=== PATIENT | female | born 1940 | race Two or more races ===

== ENCOUNTER 2018-01-07 19:33 | Inpatient (IN) | payer MEDICAID ==
[~2018-01-07] VITALS: Ht 160 cm; Wt 105.2 kg
[~2018-01-07 19:33] MED LIST: ALEN70TA45 PO; DEXL60CA3 PO; DOCU100C36 PO; FURO20TA4 PO; GABA-534 PO; GLYB5TAB7 PO; INSU3INS6 SQ; LOSA100T15 PO; METO50TA16 PO; POTA10TA10 PO; SIMV10TA6 PO; SITA100T PO
[2018-01-07] MEDS ORDERED: SIMV10TA6 PO (20:25)
[2018-01-07] MEDS ORDERED: INSU100V7 SQ (20:25)
[2018-01-07] MEDS ORDERED: SIME125C81 PO (20:25)
[2018-01-07] MEDS ORDERED: ENALAPRILAT DIHYDRATE 1.25 MG/1 ML VIAL IV ONE ×2 (20:30→20:50)
[2018-01-07] MEDS ORDERED: NITROGLYCERIN OINT 1 GM PACKET TP ONE ×2 (20:30→20:50)
[2018-01-07 21:03] LABS: BASOPHILS % (AUTO) 0.4 % (0.0-2.0); EOSINOPHILS # (AUTO) 0.1 K/uL (0.0-0.7); HEMOGLOBIN 11.9 g/dL (10.9-14.3); LYMPHOCYTES # (AUTO) 1.9 K/uL (20.0-40.0); MEAN CORPUSCULAR HEMOGLOBIN 28.3 uug (24.7-32.8); MEAN CORPUSCULAR HGB CONC 33 g/dL (32.3-35.6); MEAN CORPUSCULAR VOLUME 86.2 fL (75.5-95.3); MONOCYTES # (AUTO) 0.5 K/uL (2.0-10.0); MONOCYTES % (AUTO) 5.3 % (0.0-11.0); NEUTROPHILS # (AUTO) 7.5 K/uL (1.8-8.9); NEUTROPHILS % (AUTO) 74.3 % (38.5-71.5); PLATELET COUNT (AUTO) 272 K/uL (179-408); RED BLOOD CELL COUNT(AUTO) 4.18 MIL/uL (3.63-4.92)
[2018-01-07 21:10] LABS: CARBON DIOXIDE 21 mmol/L (21-32); CHLORIDE 107 mmol/L (98-107); CREATININE 1.3 mg/dL (0.6-1.3); GLUCOSE 244 mg/dL (74-106); POTASSIUM 3.8 mmol/L (3.5-5.1); UREA NITROGEN, BLOOD 30 mg/dL (7-18)
[2018-01-07 21:22] LABS: ALANINE AMINOTRANSFERASE 23 U/L (14-59); ALKALINE PHOSPHATASE 67 U/L (50-136); ASPARTATE AMINOTRANSFERASE 16 U/L (15-37); BILIRUBIN,DIRECT 0.1 mg/dL (0.0-0.2); BILIRUBIN,TOTAL 0.2 mg/dL (0.2-1.0); TOTAL PROTEIN, SERUM 6.9 g/dL (6.4-8.2)
--- NOTE | 2018-01-07 22:32 | NUR ---
MD MADRID AT BEDSIDE DISCUSSING TX OPTIONS WITH PT AND PT'S FAMILY.
[2018-01-08] MEDS ORDERED: MORPHINE SULFATE 4 MG/1 ML DISP.SYRIN IV PRN
[2018-01-08] MEDS ORDERED: ACETAMINOPHEN 325 MG TABLET PO PRN
[2018-01-08] MEDS ORDERED: DEXTROSE 50% 50 ML DISP.SYRIN IV PRN
[2018-01-08] MEDS ORDERED: TEMAZEPAM 15 MG CAPSULE PO PRN
[2018-01-08] MEDS ORDERED: ALBUTEROL SULFATE 2.5 MG/3 ML NEBU NEB PRN
[2018-01-08] MEDS ORDERED: ONDANSETRON 4 MG/2 ML VIAL IV PRN
--- NOTE | 2018-01-08 00:19 | NUR ---
GAVE REPORT TO VARINDER WASHINGTON IN 2ND FLOOR TELEMETRY
--- NOTE | 2018-01-08 00:50 | NUR ---
Admitted a 67 years old female with diagnosis of CHF. Pt AAOX4. Denies any pain. C/O of SOB with exertion. Place on O2 at 4LPM via NC and effective. O2 sat at 96%. IV site on right hand intact and patent. Routine admission care done. Plan of care and safety initiated. Call gaviria within reach.
--- NOTE | 2018-01-08 05:56 | NUR ---
AOx4. Denies any pain or further SOB. Not in acute distress. O2 at 4LPM via nc in place. O2 sat at 96%. Elevated both LE with pillows. IV site on right hand intact and patent. SR on tele at 73/min. Assisted to bathroom as needed. Safety measure maintained and call gaviria within reach.
[2018-01-08 06:41] VITALS: BP 134/76
[2018-01-08] MEDS: PANTOPRAZOLE SODIUM 40 MG TABLET.DR PO SCH (06:41)
[2018-01-08] MEDS: BLOOD SUGAR DIAGNOSTIC 1 EACH STRIP VI SCH ×4 (06:41→20:43)
[2018-01-08 07:05] LABS: BASOPHILS % (AUTO) 0.4 % (0.0-2.0); EOSINOPHILS # (AUTO) 0.1 K/uL (0.0-0.7); EOSINOPHILS % (AUTO) 1.5 % (0.0-7.0); HEMATOCRIT 33.5 % (31.2-41.9); LYMPHOCYTES # (AUTO) 2.3 K/uL (20.0-40.0); LYMPHOCYTES % (AUTO) 23.5 % (20.5-51.5); MEAN CORPUSCULAR HEMOGLOBIN 28.4 uug (24.7-32.8); MEAN CORPUSCULAR HGB CONC 33 g/dL (32.3-35.6); MEAN CORPUSCULAR VOLUME 86.5 fL (75.5-95.3); MONOCYTES # (AUTO) 0.5 K/uL (2.0-10.0); MONOCYTES % (AUTO) 5.3 % (0.0-11.0); NEUTROPHILS # (AUTO) 6.8 K/uL (1.8-8.9); NEUTROPHILS % (AUTO) 69.3 % (38.5-71.5); PLATELET COUNT (AUTO) 279 K/uL (179-408); RED BLOOD CELL COUNT(AUTO) 3.87 MIL/uL (3.63-4.92); WHITE BLOOD COUNT (AUTO) 9.8 K/uL (3.8-11.8)
--- NOTE | 2018-01-08 07:10 | NUR ---
RECEIVED REPORT FROM HEAD BATCHER NURSE, PATIENT IN BED AWAKE, PATIENT REPORTS MILD SHORTNESS OF BREATH ON 4 LITERS O2, BED IN LOW POSITION, SIDE RAILS UP X2, BED ALARM ON.
[2018-01-08] MEDS ORDERED: TEMAZEPAM 7.5 MG CAPSULE PO PRN (07:15)
[2018-01-08 07:25] LABS: ALANINE AMINOTRANSFERASE 20 U/L (14-59); ALKALINE PHOSPHATASE 61 U/L (50-136); ASPARTATE AMINOTRANSFERASE 18 U/L (15-37); BILIRUBIN,TOTAL 0.2 mg/dL (0.2-1.0); CARBON DIOXIDE 23 mmol/L (21-32); CHLORIDE 109 mmol/L (98-107); CHOLESTEROL 144 mg/dL (<200); CREATININE 1.3 mg/dL (0.6-1.3); GLUCOSE 212 mg/dL (74-106); HDL CHOLESTEROL 29 mg/dL (40-60); MAGNESIUM 1.9 mg/dL (1.8-2.4); PHOSPHOROUS 3.4 mg/dL (2.5-4.9); POTASSIUM 4.2 mmol/L (3.5-5.1); TOTAL PROTEIN, SERUM 6.4 g/dL (6.4-8.2); TRIGLYCERIDES 174 MG/DL (30-150); UREA NITROGEN, BLOOD 32 mg/dL (7-18)
[2018-01-08] MEDS: glyBURIDE 5 MG TABLET PO SCH ×2 (08:39→18:38)
[2018-01-08] MEDS: LOSARTAN POTASSIUM 50 MG TABLET PO SCH (08:40)
[2018-01-08] MEDS: FUROSEMIDE 40 MG/4 ML VIAL IV SCH ×2 (08:40→20:38)
[2018-01-08] MEDS: METOPROLOL TARTRATE 50 MG TABLET PO SCH ×2 (08:41→16:59)
[2018-01-08] MEDS: INSULIN REGULAR, HUMAN 300 UNIT/3 ML VIAL SQ PRN ×4 (08:43→20:45)
[2018-01-08] MEDS ORDERED: Medication Not On Formulary EA (Losartan Potassium 100 MG) PO SCH (09:00)
[2018-01-08 11:40] VITALS: BP 119/53
[2018-01-08] MEDS ORDERED: Medication Not On Formulary EA (Sitagliptin Phosphate (Januvia) 100 MG) PO SCH (12:00)
[2018-01-08] MEDS: LINAGLIPTIN 5 MG TABLET PO SCH (12:44)
[2018-01-08 15:42] VITALS: BP 151/65
--- NOTE | 2018-01-08 19:35 | NUR ---
PT RECEIVED IN BED, AWAKE. DAUGHTER AT BEDSIDE. A/OX3. ABLE TO MAKE NEEDS KNOWN. V/S STABLE. IN NO ACUTE DISTRESS. NO C/O PAIN AT THIS TIME. 68 SINUS ON THE TELE MONITOR. IV INTACT AND PATENT, SALINE FLUSHED. ON 2LNC, TOLERATING WELL. AFEBRILE. SAFETY MEASURES IMPLEMENTED. CALL LIGHT WITHIN REACH.
--- NOTE | 2018-01-08 19:36 | NUR ---
PATIENT HAS BEEN COOPERATIVE WITH CARE, BUT HAS A HIGH LEVEL OF ANXIETY AND KEEPS WALKING AROUND THE ROOM. NO PAIN REPORTED, BUT SWELLING IN LOWER EXTREMITIES EVIDENT. PATIENT CURRENTLY IN BED, NO DISTRESS NOTED, BED IN LOW POSITION, SIDE RAILS UP X2.
[2018-01-08 20:00] VITALS: BP 141/59
--- NOTE | 2018-01-08 20:50 | NUR ---
PT C/O LOWER EXTREMITY ACHING AT 3/10. TYLENOL ADMINISTERED ORDERED. IN STABLE CONDITION. WILL CONT TO MONITOR.
[2018-01-08] MEDS ORDERED: DOCUSATE SODIUM 250 MG CAPSULE PO SCH (21:00)
[2018-01-08] MEDS ORDERED: DOCUSATE SODIUM 100 MG CAPSULE PO SCH (21:00)
[2018-01-08] MEDS ORDERED: SIMVASTATIN 10 MG TABLET PO SCH (21:00)
[2018-01-08] MEDS ORDERED: hydrALAZINE HCL 25 MG TABLET PO PRN (21:15)
[2018-01-09 00:38] VITALS: BP 158/74
[2018-01-09 04:46] VITALS: BP 160/76
[2018-01-09] MEDS: PANTOPRAZOLE SODIUM 40 MG TABLET.DR PO SCH (06:00)
[2018-01-09] MEDS: BLOOD SUGAR DIAGNOSTIC 1 EACH STRIP VI SCH ×3 (06:00→16:30)
--- NOTE | 2018-01-09 06:05 | NUR ---
END OF SHIFT NOTES. PT SLEPT WELL THROUGHOUT SHIFT. INSOMNIA CEASED. IN STABLE CONDITION. TOLERATED RA WELL. IV REMAINS INTACT AND PATENT. AFEBRILE. ALL NEEDS ATTENDED. SAFETY MAINTAINED. CALL LIGHT WITHIN REACH.
[2018-01-09 06:27] LABS: BASOPHILS % (AUTO) 0.3 % (0.0-2.0); EOSINOPHILS # (AUTO) 0.2 K/uL (0.0-0.7); EOSINOPHILS % (AUTO) 2.2 % (0.0-7.0); HEMATOCRIT 35.8 % (31.2-41.9); HEMOGLOBIN 11.7 g/dL (10.9-14.3); LYMPHOCYTES # (AUTO) 2.2 K/uL (20.0-40.0); LYMPHOCYTES % (AUTO) 22.3 % (20.5-51.5); MEAN CORPUSCULAR HEMOGLOBIN 28.4 uug (24.7-32.8); MEAN CORPUSCULAR HGB CONC 33 g/dL (32.3-35.6); MEAN CORPUSCULAR VOLUME 86.9 fL (75.5-95.3); MONOCYTES # (AUTO) 0.6 K/uL (2.0-10.0); MONOCYTES % (AUTO) 6.4 % (0.0-11.0); NEUTROPHILS # (AUTO) 6.7 K/uL (1.8-8.9); NEUTROPHILS % (AUTO) 68.8 % (38.5-71.5); PLATELET COUNT (AUTO) 260 K/uL (179-408); RED BLOOD CELL COUNT(AUTO) 4.12 MIL/uL (3.63-4.92); WHITE BLOOD COUNT (AUTO) 9.7 K/uL (3.8-11.8)
[2018-01-09 06:32] LABS: CARBON DIOXIDE 24 mmol/L (21-32); CHLORIDE 108 mmol/L (98-107); CREATININE 1.5 mg/dL (0.6-1.3); GLUCOSE 189 mg/dL (74-106); MAGNESIUM 1.8 mg/dL (1.8-2.4); PHOSPHOROUS 3.7 mg/dL (2.5-4.9); POTASSIUM 3.8 mmol/L (3.5-5.1); UREA NITROGEN, BLOOD 33 mg/dL (7-18)
--- NOTE | 2018-01-09 07:20 | NUR ---
received report from commodities requirements analyst nurse, patient in bed awake, patient reports feeling a great deal of anxiety and wants to be discharged home, bed in low position, side rails up x2.
[2018-01-09] MEDS: glyBURIDE 5 MG TABLET PO SCH ×2 (08:28→17:47)
[2018-01-09] MEDS: FUROSEMIDE 40 MG/4 ML VIAL IV SCH (08:29)
[2018-01-09] MEDS: METOPROLOL TARTRATE 50 MG TABLET PO SCH ×2 (08:34→17:47)
[2018-01-09] MEDS: LOSARTAN POTASSIUM 50 MG TABLET PO SCH (08:35)
[2018-01-09] MEDS: INSULIN REGULAR, HUMAN 300 UNIT/3 ML VIAL SQ PRN ×3 (08:37→17:55)
[2018-01-09 11:46] VITALS: BP 114/53
[2018-01-09] MEDS: LINAGLIPTIN 5 MG TABLET PO SCH (12:04)
[2018-01-09 15:50] VITALS: BP 135/59
[2018-01-09] MEDS ORDERED: GLYB5TAB7 PO (17:28)
[2018-01-09] MEDS ORDERED: FURO20TA4 PO (17:28)
[2018-01-09 17:47] VITALS: BP 135/59
--- NOTE | 2018-01-09 18:40 | NUR ---
Patient was given education on diabetes care, diet and exercise management. IV removed, and prescriptions given. Patient has no Shortness of breath, pain or lower extremity swelling. Patient declined to take photographs.
[2018-01-10] MEDS ORDERED: FUROSEMIDE 20 MG TABLET PO SCH (09:00)
== END 2018-01-09 18:45 | disposition home or self-care (01) | DRG 194 ==
LOC: ER 19:35 → TELE 01-08 00:05 → MED 01-09 00:35
PROVIDERS: ADMIT Internal Medicine; ATTEND Internal Medicine
DX: I13.0 Hypertensive heart and chronic kidney disease with heart failure and stage 1 through stage 4 chronic kidney disease, or unspecified chronic kidney disease (principal); N17.0 Acute kidney failure with tubular necrosis; E11.22 Type 2 diabetes mellitus with diabetic chronic kidney disease; I45.10 Unspecified right bundle-branch block; I50.33 Acute on chronic diastolic (congestive) heart failure; N18.9 Chronic kidney disease, unspecified; E11.42 Type 2 diabetes mellitus with diabetic polyneuropathy; Z79.4 Long term (current) use of insulin; Z79.899 Other long term (current) drug therapy; E78.5 Hyperlipidemia, unspecified; E11.65 Type 2 diabetes mellitus with hyperglycemia; E66.01 Morbid (severe) obesity due to excess calories; Z68.41 Body mass index [BMI] 40.0-44.9, adult; I34.0 Nonrheumatic mitral (valve) insufficiency; I25.10 Atherosclerotic heart disease of native coronary artery without angina pectoris
CPT/HCPCS: 36415; 70030-TC; 71045; 83605; 83735; 84100; 84443; 85025; 85730; 87040; 93005; 93307; A4663; J1815; J1940; J3490; J7030

== ENCOUNTER 2018-08-24 16:57 | Emergency (ER) | payer MEDICAID ==
[~2018-08-24] VITALS: Ht 165.1 cm; Wt 105.7 kg
[~2018-08-24 16:57] MED LIST changes: -GABA-534 PO; +INSU100V7 SQ; -INSU3INS6 SQ; +SIME125C81 PO
[2018-08-24] MEDS ORDERED: methylPREDNISolone ACETATE 40 MG VIAL IM ONE (17:15)
--- NOTE | 2018-08-24 17:15 | NUR ---
PATIENT WAS MSE BY DR STRICKLAND IN ROOM 01B.
[2018-08-24] MEDS ORDERED: methylPREDNISolone ACETATE 40 MG VIAL ONE (17:23)
--- NOTE | 2018-08-24 17:42 | NUR ---
Patient discharged to home in stable conditon. Written and verbal after care instructions given. Patient verbalizes understanding of instructions.
[2018-08-24 17:44] VITALS: BP 127/69
[2018-08-24] MEDS ORDERED: methylPREDNISolone ACETATE 80 MG VIAL IM ONE (18:15)
== END 2018-08-24 17:45 | disposition home or self-care (01) ==
LOC: ER 16:59
DX: S80.869A Insect bite (nonvenomous), unspecified lower leg, initial encounter (principal); L08.9 Local infection of the skin and subcutaneous tissue, unspecified; E11.9 Type 2 diabetes mellitus without complications; I10 Essential (primary) hypertension; E78.00 Pure hypercholesterolemia, unspecified; Z79.4 Long term (current) use of insulin; W57.XXXA Bitten or stung by nonvenomous insect and other nonvenomous arthropods, initial encounter; Y93.89 Activity, other specified; Y92.89 Other specified places as the place of occurrence of the external cause; Y99.8 Other external cause status
CPT/HCPCS: 96372; 99283; J1040; A4663; J1030

== ENCOUNTER 2018-09-20 17:28 | Emergency (ER) | payer MEDICAID ==
[~2018-09-20] VITALS: Ht 167.6 cm; Wt 105.7 kg
[2018-09-20] MEDS ORDERED: diphenhydrAMINE 25 MG CAP PO ONE ×2 (18:14→18:15)
--- NOTE | 2018-09-20 18:21 | NUR ---
PT WAS EVALUATED BY DR CHACON. PT WAS D/C'd TO HOME BY DR CHACON. D/C INSTRUCTIONS GIVEN TO THE PT.
[2018-09-20 18:22] VITALS: BP 153/79
== END 2018-09-20 18:29 | disposition home or self-care (01) ==
LOC: ER 17:29
DX: R21 Rash and other nonspecific skin eruption (principal); E11.9 Type 2 diabetes mellitus without complications; I10 Essential (primary) hypertension; E78.00 Pure hypercholesterolemia, unspecified
CPT/HCPCS: 99282; Q0163; A4663

== ENCOUNTER 2019-06-08 21:24 | Inpatient (IN) | payer MEDICAID ==
[~2019-06-08] VITALS: Ht 162.6 cm; Wt 99.5 kg
[~2019-06-08 21:24] MED LIST changes: -ALEN70TA45 PO; +ALEN70TA6 PO; -LOSA100T15 PO; +LOSA100T31 PO
[2019-06-08] MEDS ORDERED: POTA8TAB3 PO (21:52)
[2019-06-08] MEDS ORDERED: SIMV10TA6 PO (21:52)
[2019-06-08] MEDS ORDERED: NIFE90TA37 PO (21:52)
[2019-06-08] MEDS ORDERED: CARV6.252 PO (21:52)
[2019-06-08] MEDS ORDERED: FURO20TA4 PO (21:52)
[2019-06-08] MEDS ORDERED: GLYB5TAB7 PO (21:52)
[2019-06-08] MEDS ORDERED: LOSA100T31 PO (21:52)
[2019-06-08] MEDS ORDERED: SITA100T PO (21:52)
[2019-06-08 21:59] LABS: BASOPHILS # (AUTO) 0.1 K/uL (0.0-8.0); BASOPHILS % (AUTO) 0.6 % (0.0-2.0); EOSINOPHILS # (AUTO) 0.1 K/uL (0.0-0.7); EOSINOPHILS % (AUTO) 1.3 % (0.0-7.0); HEMATOCRIT 34.2 % (31.2-41.9); HEMOGLOBIN 11.3 g/dL (10.9-14.3); LYMPHOCYTES # (AUTO) 2.4 K/uL (20.0-40.0); MEAN CORPUSCULAR HEMOGLOBIN 28.8 uug (24.7-32.8); MEAN CORPUSCULAR HGB CONC 33 g/dL (32.3-35.6); MEAN CORPUSCULAR VOLUME 87.4 fL (75.5-95.3); MONOCYTES # (AUTO) 0.7 K/uL (2.0-10.0); MONOCYTES % (AUTO) 6.2 % (0.0-11.0); NEUTROPHILS # (AUTO) 7.7 K/uL (1.8-8.9); NEUTROPHILS % (AUTO) 69.9 % (38.5-71.5); PLATELET COUNT (AUTO) 283 K/uL (179-408); RED BLOOD CELL COUNT(AUTO) 3.91 MIL/uL (3.63-4.92)
[2019-06-08 22:05] LABS: CARBON DIOXIDE 21 mmol/L (21-32); CHLORIDE 105 mmol/L (98-107); CREATININE 1.6 mg/dL (0.6-1.3); GLUCOSE 169 mg/dL (74-106); POTASSIUM 4.4 mmol/L (3.5-5.1); UREA NITROGEN, BLOOD 30 mg/dL (7-18)
[2019-06-08 22:18] LABS: ALANINE AMINOTRANSFERASE 16 U/L (14-59); ALKALINE PHOSPHATASE 64 U/L (50-136); ASPARTATE AMINOTRANSFERASE 9 U/L (15-37); BILIRUBIN,DIRECT 0.1 mg/dL (0.0-0.2); BILIRUBIN,TOTAL 0.2 mg/dL (0.2-1.0); TOTAL PROTEIN, SERUM 7.2 g/dL (6.4-8.2)
[2019-06-09] MEDS ORDERED: ALBUTEROL SULFATE 2.5 MG/3 ML NEBU NEB PRN (00:45)
[2019-06-09] MEDS ORDERED: ACETAMINOPHEN 325 MG TABLET PO PRN (00:45)
[2019-06-09] MEDS ORDERED: MORPHINE SULFATE 2 MG/1 ML DISP.SYRIN IV PRN (00:45)
[2019-06-09] MEDS ORDERED: HYDROCODONE/APAP 5-325MG TABLET PO PRN (00:45)
[2019-06-09] MEDS ORDERED: ONDANSETRON 4 MG/2 ML VIAL IV PRN (00:45)
[2019-06-09] MEDS ORDERED: ZOLPIDEM 5 MG TABLET PO PRN (00:45)
[2019-06-09] MEDS ORDERED: DEXTROSE 50% 50 ML DISP.SYRIN IV PRN (00:45)
[2019-06-09] MEDS ORDERED: Z GUARD REMEDY PASTE 57 GM TUBE TOP PRN (00:45)
[2019-06-09 00:53] VITALS: BP 151/76
[2019-06-09] MEDS: FUROSEMIDE 20 MG/2 ML VIAL IV SCH ×3 (01:16→20:56)
[2019-06-09 04:00] VITALS: BP 145/72
[2019-06-09] MEDS: BLOOD SUGAR DIAGNOSTIC 1 EACH STRIP VI SCH ×4 (06:20→21:50)
[2019-06-09 06:36] LABS: BASOPHILS % (AUTO) 0.2 % (0.0-2.0); EOSINOPHILS # (AUTO) 0.2 K/uL (0.0-0.7); EOSINOPHILS % (AUTO) 1.6 % (0.0-7.0); HEMATOCRIT 32.6 % (31.2-41.9); LYMPHOCYTES # (AUTO) 1.9 K/uL (20.0-40.0); LYMPHOCYTES % (AUTO) 19.4 % (20.5-51.5); MEAN CORPUSCULAR HEMOGLOBIN 29.2 uug (24.7-32.8); MEAN CORPUSCULAR HGB CONC 34 g/dL (32.3-35.6); MEAN CORPUSCULAR VOLUME 86.9 fL (75.5-95.3); MONOCYTES # (AUTO) 0.7 K/uL (2.0-10.0); MONOCYTES % (AUTO) 6.7 % (0.0-11.0); NEUTROPHILS # (AUTO) 7.1 K/uL (1.8-8.9); NEUTROPHILS % (AUTO) 72.1 % (38.5-71.5); PLATELET COUNT (AUTO) 273 K/uL (179-408); RED BLOOD CELL COUNT(AUTO) 3.76 MIL/uL (3.63-4.92); WHITE BLOOD COUNT (AUTO) 9.9 K/uL (3.8-11.8)
[2019-06-09 06:59] LABS: ALANINE AMINOTRANSFERASE 17 U/L (14-59); ALKALINE PHOSPHATASE 59 U/L (50-136); ASPARTATE AMINOTRANSFERASE 10 U/L (15-37); BILIRUBIN,TOTAL 0.2 mg/dL (0.2-1.0); CARBON DIOXIDE 25 mmol/L (21-32); CHLORIDE 109 mmol/L (98-107); CHOLESTEROL 174 mg/dL (<200); CREATININE 1.5 mg/dL (0.6-1.3); GLUCOSE 76 mg/dL (74-106); HDL CHOLESTEROL 31 mg/dL (40-60); MAGNESIUM 1.8 mg/dL (1.8-2.4); POTASSIUM 4.3 mmol/L (3.5-5.1); TOTAL PROTEIN, SERUM 6.5 g/dL (6.4-8.2); TRIGLYCERIDES 193 MG/DL (30-150); UREA NITROGEN, BLOOD 31 mg/dL (7-18)
[2019-06-09 07:03] LABS: THYROID STIMULATING HORMONE 0.981 mIU/mL (0.358-3.740)
[2019-06-09] MEDS: glyBURIDE 5 MG TABLET PO SCH ×2 (08:38→17:55)
[2019-06-09] MEDS ORDERED: CARVEDILOL 6.25 MG TABLET PO SCH (09:00)
[2019-06-09] MEDS ORDERED: METOPROLOL TARTRATE 50 MG TABLET PO SCH (09:00)
[2019-06-09] MEDS ORDERED: LOSARTAN POTASSIUM 50 MG TABLET PO SCH (09:00)
[2019-06-09] MEDS ORDERED: Medication Not On Formulary EA (Sitagliptin Phosphate (Januvia) 100 MG) PO SCH (09:00)
[2019-06-09] MEDS: NIFEdipine XL 90 MG TABSR PO SCH (09:20)
[2019-06-09] MEDS: LINAGLIPTIN 5 MG TABLET PO SCH (09:21)
[2019-06-09 11:40] VITALS: BP 128/58
[2019-06-09] MEDS: INSULIN REGULAR, HUMAN 300 UNIT/3 ML VIAL SQ PRN ×2 (11:55→18:44)
[2019-06-09] MEDS ORDERED: CEphaleXIN 500 MG CAPSULE PO SCH (13:45)
[2019-06-09] MEDS: CARVEDILOL 6.25 MG TABLET PO SCH ×2 (14:50→17:56)
[2019-06-09] MEDS ORDERED: VANCOMYCIN IV SCH (15:00)
[2019-06-09] MEDS ORDERED: VANCOMYCIN IV 1,250 MG in IV DEXTROSE 5% 250 ML IV SCH (15:00)
[2019-06-09] MEDS ORDERED: DEXTROSE 5% IV SCH (15:00)
[2019-06-09 15:37] LABS: *BILIRUBIN,URIN NEGATIVE (NEGATIVE); *BLOOD, URINE NEGATIVE (NEGATIVE); *COLOR,URINE LIGHT YELLOW (YELLOW); *KETONES,URINE NEGATIVE (NEGATIVE); *UROBILINOGEN,URINE 0.2 E.U./dl (NORMAL); LEUKOCYTE ESTERASE ,URINE NEGATIVE (NEGATIVE); NITRITE, URINE NEGATIVE (NEGATIVE); PH,URINE 5.5 (5.0-8.0); UGLUCOSE TRACE (NEGATIVE)
[2019-06-09 15:52] LABS: *CLARITY,URINE SLIGHTLY HAZY (CLEAR)
[2019-06-09 15:54] LABS: BACTERIA,URINE MODERATE /HPF (NONE SEEN); MUCUS,URINE FEW /LPF (0-FEW); SQUAMOUS EPITHELIAL CELL,UR MODERATE /HPF (NONE SEEN); WBC,URINE 0-3 /HPF (0-3)
[2019-06-09 16:06] VITALS: BP 139/89
[2019-06-09] MEDS ORDERED: INSU100C4 SQ (16:28)
[2019-06-09 20:00] VITALS: BP 135/87
[2019-06-09] MEDS: ATORVASTATIN 20 MG TABLET PO SCH (20:56)
[2019-06-09] MEDS: DOCUSATE SODIUM 100 MG CAPSULE PO SCH (20:57)
[2019-06-09] MEDS ORDERED: SIMVASTATIN 10 MG TABLET PO SCH (21:00)
[2019-06-09] MEDS: INSULIN REGULAR, HUMAN 300 UNITS/3 ML VIAL SQ PRN (21:52)
[2019-06-10] VITALS: BP 103/58
[2019-06-10 05:20] VITALS: BP 114/49
[2019-06-10 06:20] LABS: BASOPHILS % (AUTO) 0.4 % (0.0-2.0); EOSINOPHILS # (AUTO) 0.2 K/uL (0.0-0.7); EOSINOPHILS % (AUTO) 1.6 % (0.0-7.0); HEMATOCRIT 33.7 % (31.2-41.9); HEMOGLOBIN 11.3 g/dL (10.9-14.3); LYMPHOCYTES # (AUTO) 1.8 K/uL (20.0-40.0); LYMPHOCYTES % (AUTO) 17.9 % (20.5-51.5); MEAN CORPUSCULAR HEMOGLOBIN 29.3 uug (24.7-32.8); MEAN CORPUSCULAR HGB CONC 34 g/dL (32.3-35.6); MEAN CORPUSCULAR VOLUME 87.2 fL (75.5-95.3); MONOCYTES # (AUTO) 0.7 K/uL (2.0-10.0); NEUTROPHILS # (AUTO) 7.3 K/uL (1.8-8.9); NEUTROPHILS % (AUTO) 73.1 % (38.5-71.5); PLATELET COUNT (AUTO) 272 K/uL (179-408); RED BLOOD CELL COUNT(AUTO) 3.86 MIL/uL (3.63-4.92); WHITE BLOOD COUNT (AUTO) 9.9 K/uL (3.8-11.8)
[2019-06-10] MEDS: BLOOD SUGAR DIAGNOSTIC 1 EACH STRIP VI SCH ×4 (06:32→21:19)
[2019-06-10 06:37] LABS: CARBON DIOXIDE 24 mmol/L (21-32); CHLORIDE 104 mmol/L (98-107); CREATININE 1.6 mg/dL (0.6-1.3); GLUCOSE 191 mg/dL (74-106); MAGNESIUM 1.7 mg/dL (1.8-2.4); PHOSPHOROUS 4.5 mg/dL (2.5-4.9); POTASSIUM 4.4 mmol/L (3.5-5.1); UREA NITROGEN, BLOOD 35 mg/dL (7-18)
[2019-06-10] MEDS: LOSARTAN POTASSIUM 50 MG TABLET PO SCH (08:31)
[2019-06-10] MEDS: NIFEdipine XL 90 MG TABSR PO SCH (08:32)
[2019-06-10] MEDS: glyBURIDE 5 MG TABLET PO SCH ×2 (08:32→17:58)
[2019-06-10] MEDS: FUROSEMIDE 20 MG/2 ML VIAL IV SCH ×2 (08:33→20:27)
[2019-06-10] MEDS: CARVEDILOL 6.25 MG TABLET PO SCH ×2 (08:33→17:58)
[2019-06-10] MEDS: LINAGLIPTIN 5 MG TABLET PO SCH (08:36)
[2019-06-10] MEDS ORDERED: MAGNESIUM OXIDE 400 MG TABLET PO ONE (09:30)
[2019-06-10 11:15] VITALS: BP 108/67
[2019-06-10] MEDS: INSULIN REGULAR, HUMAN 300 UNIT/3 ML VIAL SQ PRN ×2 (11:57→16:54)
[2019-06-10 15:12] VITALS: BP 134/55
[2019-06-10] MEDS ORDERED: VANCOMYCIN IV 1,250 MG in IV DEXTROSE 5% 250 ML IV SCH (19:00)
[2019-06-10] MEDS: DOCUSATE SODIUM 100 MG CAPSULE PO SCH (20:27)
[2019-06-10] MEDS: ATORVASTATIN 20 MG TABLET PO SCH (20:27)
[2019-06-10 20:47] VITALS: BP 134/56
[2019-06-10] MEDS: INSULIN REGULAR, HUMAN 300 UNITS/3 ML VIAL SQ PRN (21:27)
[2019-06-11 05:09] VITALS: BP 130/54
[2019-06-11] MEDS: BLOOD SUGAR DIAGNOSTIC 1 EACH STRIP VI SCH ×3 (06:49→16:43)
[2019-06-11 06:58] LABS: CARBON DIOXIDE 24 mmol/L (21-32); CHLORIDE 105 mmol/L (98-107); CREATININE 1.5 mg/dL (0.6-1.3); GLUCOSE 242 mg/dL (74-106); MAGNESIUM 1.8 mg/dL (1.8-2.4); POTASSIUM 4.6 mmol/L (3.5-5.1); UREA NITROGEN, BLOOD 35 mg/dL (7-18)
[2019-06-11 07:30] LABS: BASOPHILS % (AUTO) 0.4 % (0.0-2.0); EOSINOPHILS # (AUTO) 0.2 K/uL (0.0-0.7); EOSINOPHILS % (AUTO) 1.8 % (0.0-7.0); HEMOGLOBIN 11.2 g/dL (10.9-14.3); MEAN CORPUSCULAR HGB CONC 33 g/dL (32.3-35.6); MEAN CORPUSCULAR VOLUME 87.9 fL (75.5-95.3); MONOCYTES # (AUTO) 0.6 K/uL (2.0-10.0); MONOCYTES % (AUTO) 6.8 % (0.0-11.0); PLATELET COUNT (AUTO) 266 K/uL (179-408); RED BLOOD CELL COUNT(AUTO) 3.87 MIL/uL (3.63-4.92); WHITE BLOOD COUNT (AUTO) 8.8 K/uL (3.8-11.8)
[2019-06-11] MEDS: CARVEDILOL 6.25 MG TABLET PO SCH ×2 (08:00→17:31)
[2019-06-11] MEDS: glyBURIDE 5 MG TABLET PO SCH ×2 (08:14→17:30)
[2019-06-11] MEDS: INSULIN REGULAR, HUMAN 300 UNIT/3 ML VIAL SQ PRN ×3 (08:17→17:07)
[2019-06-11] MEDS: FUROSEMIDE 20 MG/2 ML VIAL IV SCH (08:59)
[2019-06-11] MEDS: NIFEdipine XL 90 MG TABSR PO SCH (09:00)
[2019-06-11] MEDS: LOSARTAN POTASSIUM 50 MG TABLET PO SCH (09:00)
[2019-06-11] MEDS: LINAGLIPTIN 5 MG TABLET PO SCH (09:03)
[2019-06-11 11:10] VITALS: BP 109/49
[2019-06-11] MEDS ORDERED: CEPH-570 PO (12:51)
[2019-06-11] MEDS ORDERED: ATOR20TA PO (12:51)
[2019-06-11 15:10] VITALS: BP 116/48
[2019-06-11] MEDS: CEphaleXIN 500 MG CAPSULE PO SCH ×2 (15:27→17:30)
[2019-06-11 17:31] VITALS: BP 139/69
[2019-06-14] MEDS ORDERED: ALENDRONATE SODIUM 70 MG TABLET PO SCH (06:00)
== END 2019-06-11 17:58 | disposition home or self-care (01) | DRG 194 ==
LOC: ER 21:24 → TELE3 23:55 → MEDSURG3 06-10 17:00
PROVIDERS: ADMIT Nurse Practitioner Acute Care; ATTEND Registered Nurse
DX: I11.0 Hypertensive heart disease with heart failure (principal); N17.0 Acute kidney failure with tubular necrosis; L03.115 Cellulitis of right lower limb; E11.22 Type 2 diabetes mellitus with diabetic chronic kidney disease; E11.65 Type 2 diabetes mellitus with hyperglycemia; E66.01 Morbid (severe) obesity due to excess calories; I50.33 Acute on chronic diastolic (congestive) heart failure; I13.0 Hypertensive heart and chronic kidney disease with heart failure and stage 1 through stage 4 chronic kidney disease, or unspecified chronic kidney disease; N18.9 Chronic kidney disease, unspecified; Z79.4 Long term (current) use of insulin; L03.116 Cellulitis of left lower limb; Z68.36 Body mass index [BMI] 36.0-36.9, adult; Z79.899 Other long term (current) drug therapy; I45.10 Unspecified right bundle-branch block; E78.5 Hyperlipidemia, unspecified; Z79.84 Long term (current) use of oral hypoglycemic drugs; Z98.49 Cataract extraction status, unspecified eye; R26.2 Difficulty in walking, not elsewhere classified; I87.8 Other specified disorders of veins; E78.00 Pure hypercholesterolemia, unspecified
CPT/HCPCS: 36415; 70030-TC; 71045; 83735; 84100; 84443; 85025; 85730; 87086; 93005; 93307; A4663; G0378; J1815; J1940; J7050; J7060

== ENCOUNTER 2022-03-18 21:04 | Emergency (ER) | payer MEDICAID ==
[~2022-03-18] VITALS: Ht 157.5 cm; Wt 99.8 kg
[~2022-03-18 21:04] MED LIST changes: -ALEN70TA6 PO; +ALEN70TA80 PO; +ATOR20TA PO; +CARV6.252 PO; +CEPH-570 PO; +INSU100C4 SQ; -METO50TA16 PO; +NIFE90TA61 PO; -POTA10TA10 PO; +POTA8TAB3 PO; -SIME125C81 PO; -SIMV10TA6 PO
[2022-03-18] MEDS ORDERED: ASPIRIN 81 MG TAB.CHEW PO ONE (22:00)
[2022-03-18] MEDS ORDERED: ASPIRIN 81 MG TAB.CHEW ONE (22:07)
[2022-03-18 22:11] LABS: HEMATOCRIT 36.7 % (31.2-41.9); MEAN CORPUSCULAR HEMOGLOBIN 29.5 uug (24.7-32.8); MEAN CORPUSCULAR VOLUME 86.9 fL (75.5-95.3); PLATELET COUNT (AUTO) 280 K/uL (179-408)
--- NOTE | 2022-03-18 22:30 | NUR ---
Patient ambulatory to bathroom with steady gait. No distress noted.
[2022-03-18 22:33] LABS: ALANINE AMINOTRANSFERASE 14 U/L (14-59); ALKALINE PHOSPHATASE 68 U/L (50-136); ASPARTATE AMINOTRANSFERASE 11 U/L (15-37); BILIRUBIN,DIRECT < 0.1 mg/dL (0.0-0.2); BILIRUBIN,TOTAL 0.3 mg/dL (0.2-1.0); CARBON DIOXIDE 23 mmol/L (21-32); CHLORIDE 95 mmol/L (98-107); CREATININE 1.7 mg/dL (0.6-1.3); GLUCOSE 237 mg/dL (74-106); POTASSIUM 3.3 mmol/L (3.5-5.1); TOTAL PROTEIN, SERUM 7.3 g/dL (6.4-8.2); UREA NITROGEN, BLOOD 61 mg/dL (7-18)
--- NOTE | 2022-03-19 01:27 | NUR ---
Tahir from [facility] called back with transfer info. Patient will be going to [facility] room 856 bed 2. Accepting MD is Dr Bates. Call for report is . Tahir will call back with GLORIA HOLLY
--- NOTE | 2022-03-19 04:43 | NUR ---
Tahir from [facility] called back and stated she is unable to find transportation yet and will continue to look.
--- NOTE | 2022-03-19 04:47 | NUR ---
Called [facility] ambulance, but they have no ALS transport to take patient to [facility].
--- NOTE | 2022-03-19 06:00 | NUR ---
IV removed. Catheter intact and site benign. Pressure and 4x4 gauze applied to site. No bleeding noted.
--- NOTE | 2022-03-19 06:15 | NUR ---
Patient does not wish to proceed with medical care recommended by (Clara ). Patient given information related to possible complications, up to and including , which could occur as a result of leaving the hospital at this time. Patient verbalizes understanding of risks involved due to leaving against medical advice. Patient has signed AMA form.
[2022-03-19 06:51] VITALS: BP 140/99
== END 2022-03-19 06:10 | disposition home or self-care (01) ==
LOC: ER 21:11
DX: R07.9 Chest pain, unspecified (principal); N17.9 Acute kidney failure, unspecified; I11.0 Hypertensive heart disease with heart failure; I50.9 Heart failure, unspecified; E11.9 Type 2 diabetes mellitus without complications; E78.5 Hyperlipidemia, unspecified; Z79.4 Long term (current) use of insulin; Z79.899 Other long term (current) drug therapy; Z20.822 Contact with and (suspected) exposure to COVID-19
CPT/HCPCS: 36415; 71045; 84484; 85025; 93005; A4663